=== PATIENT | female | born 1960 | race Two or more races ===

== ENCOUNTER 2021-05-29 20:41 | Inpatient (IN) | payer OTHER ==
[~2021-05-29] VITALS: Ht 167.6 cm; Wt 63.5 kg
--- NOTE | 2021-05-29 20:47 | NUR ---
PACIENTE ALERTA Y ORIENTADA POR PASCALE. REFIERE ABCESSO EN AREA PERIANAL CON DOLOR,PICOR Y ARDOR, REFIERE SUPURANDO SECRESIONES SANGUINOLIENTAS.
--- NOTE | 2021-05-29 21:51 | NUR ---
BOOTH EVALUA PTE. SE ORIENTA A PTE SOBRE ORDENES MEDICAS Y TRATAMIENTO. SE EXTRAEN MUESTRAS, SE CANALIZA PTE Y SE ADMINISTRAN MEDICAMENTOS BAJO MEDIDAS ASEPTICAS POR RN.Y.KLEIN. SE LE ENTREGA A PTE U/A PARA COLECCION Y SE ORIENTA SOBRE PROCESO. SE LE REALIZA EKG A PTE POR MADHURI SERRANO E LE PRESENTA A DR SERRANO. SE ENVIA PTE A TRACI X PARA ESTUDIO PENDIENTE.
--- NOTE | 2021-05-30 09:00 | NUR ---
SE RECIBE PTE DEL TURNO ANTERIO, ALERTA Y ORIENTADA EN AZALEA PASCALE ESFERAS, UBICADA EN JOSSELIN NIVEL MAS BAJO, DAWN DE IDENTIFICACION Y BARANDAS ELEVADASPOR PRECAUCION. SE OBSERVA CON BUEN PATRON RESPIRATORIO Y PIEL TIBIA AL TACTO. S/L PATENTE Y FERNANDO DE EDEMA O ERITEMA. PTE CONSULTADA CON DR ALIZA BUNCH ([facility]). SE MANTIENE BAJO OBSERVACION.
[2021-06-02] MEDS ORDERED: MONTELUKAST SOD10 MG (10:58)
== END 2021-06-04 16:38 | disposition home or self-care (01) | DRG 603 ==
LOC: ER 20:41 → SURG 05-30 11:09 → SEC-K 05-30 11:09 → O/R 05-30 14:52 → SURG 05-30 15:31
PROVIDERS: ADMIT Surgery; ATTEND Surgery
PROC: 0H98XZZ Drainage of Buttock Skin, External Approach (ICD-10-PCS; principal; 2021-05-30 12:00)
DX: L02.31 Cutaneous abscess of buttock (principal); K60.3 Anal fistula; B96.20 Unspecified Escherichia coli [E. coli] as the cause of diseases classified elsewhere; K57.30 Diverticulosis of large intestine without perforation or abscess without bleeding

== ENCOUNTER 2022-05-04 12:45 | Inpatient (IN) | payer OTHER ==
[~2022-05-04] VITALS: Ht 167.6 cm; Wt 142.0 kg
[~2022-05-04 12:45] MED LIST: MONTELUKAST SOD10 MG; SULINDAC200 MG
== END 2022-05-07 14:40 | disposition home or self-care (01) | DRG 921 ==
LOC: ER 12:45 → SURG 05-05 17:06
PROVIDERS: ADMIT Colon & Rectal Surgery; ATTEND Colon & Rectal Surgery
PROC: BW21YZZ Computerized Tomography (CT Scan) of Abdomen and Pelvis using Other Contrast (ICD-10-PCS; principal; 2022-05-04)
PROC: 3E0F7SF Introduction of Other Gas into Respiratory Tract, Via Natural or Artificial Opening (ICD-10-PCS; 2022-05-05)
DX: K91.841 Postprocedural hemorrhage of a digestive system organ or structure following other procedure (principal); K60.2 Anal fissure, unspecified; Y83.8 Other surgical procedures as the cause of abnormal reaction of the patient, or of later complication, without mention of misadventure at the time of the procedure; Y92.9 Unspecified place or not applicable; Z20.822 Contact with and (suspected) exposure to COVID-19